=== PATIENT | male | born 1950 | race Caucasian/White ===

== ENCOUNTER 2017-04-04 10:22 | Outpatient (RCR) | payer MEDICARE, OTHER ==
--- NOTE | 2017-03-25 12:34 | Diagnostic Imaging Report ---
EXAMINATION: Supine view of the abdomen. INDICATION: Stones. FINDINGS: There are multiple calcifications in the flank region seen bilaterally up to 7 mm on both sides likely related to kidney stones. There is a 7 mm calcification projecting over the left margin of the sacrum near the course of the left ureter. It is uncertain if this is in or outside the left ureter. There is evidence of prior hernia repair with radiopaque markers along the mesh in the periumbilical region. IMPRESSION: 1. Bilateral kidney stones up to 6 mm suggested. 2. Indeterminate 7 mm calcification along the lateral margin of the left lower sacrum. If there is clinical suspicion of a left ureteric stone, then further evaluation with CT would be helpful in localizing this calcification. Dictated by: Dictated on workstation # [id number]
[2017-03-25 13:29] LABS: CREATININE SERUM 1.28 MG/DL (0.60-1.30); PHOSPHORUS 2.8 MG/DL (2.3-4.7); POTASSIUM 3.4 MMOL/L (3.6-5.0)
[2017-03-25 13:45] LABS: CALCIUM 13.4 MG/DL (8.5-10.1)
[2017-04-07] MEDS ORDERED: HYDR25TA4 PO (14:32)
[2017-04-07] MEDS ORDERED: ASCO-262 PO (14:32)
[2017-04-07] MEDS ORDERED: GABA-488 PO (14:32)
[2017-04-07] MEDS ORDERED: LISI10TA2 PO (14:32)
[2017-04-07] MEDS ORDERED: DOCU100T7 PO (14:32)
[2017-04-07] MEDS ORDERED: ALLO100T PO (14:32)
[2017-04-07] MEDS ORDERED: POTA10TA17 PO (14:32)
[2017-04-07] MEDS ORDERED: BUME1TAB4 PO (14:32)
[2017-04-07] MEDS ORDERED: METF1000 PO (14:32)
[2017-04-07] MEDS ORDERED: VITA1TAB17 PO (14:32)
[2017-04-07] MEDS ORDERED: GLIM2TAB PO (14:32)
[2017-04-07] MEDS ORDERED: CETI10TA17 PO (14:32)
[2017-04-07] MEDS ORDERED: POTA15TA PO (14:32)
[2017-04-07 22:38] LABS: STONE RISK AMMONIUM 18 mEq/24hr (14-62); STONE RISK BRUSHITE 4.21 (< 2.00); STONE RISK CALCIUM 457 mg/day (< 250); STONE RISK CITRATE 840 mg/day (> 320); STONE RISK CREATININE 2060 mg/day (800-2000); STONE RISK MAGNESIUM 133 mg/day (> 60); STONE RISK OXALATE 90 mg/day (< 45); STONE RISK PH 6.5 (5.5-7.0); STONE RISK PHOSPHOROUS 1509 mg/day (< 1100); STONE RISK POTASSIUM 112 mEq/24hr (19-135); STONE RISK SODIUM 198 mEq/24hr (< 200); STONE RISK SODIUM URATES 1.07 (< 2.00); STONE RISK STRUVITE 0.93 (< 75.00); STONE RISK SULFITE 33 mmol/day (< 30); STONE RISK TOTAL VOLUME 2.68 L/day (> 2.00); STONE RISK URIC ACID 482 mg/day (< 700); STONE RISK URIC ACID SAT 0.27 (< 2.00)
[2017-04-12] MEDS ORDERED: HYDR-3875 PO (10:23)
[2017-04-12] MEDS ORDERED: TAMS0.4C98 PO (10:23)
[2017-04-12] MEDS ORDERED: CIPR-225 PO (10:23)
[2017-04-27] MEDS ORDERED: TAMS0.4C98 PO (09:53)
[2017-04-27] MEDS ORDERED: NITR-65 PO (09:53)
[2017-04-27] MEDS ORDERED: HYDR-3875 PO (09:53)
[2017-06-07] MEDS ORDERED: HYDR-3874 PO (09:30)
[2017-06-07] MEDS ORDERED: NITR-68 PO (09:30)
[2017-06-07] MEDS ORDERED: TAMS0.4C98 PO (09:30)
== END 2017-06-11 | disposition home or self-care (01) ==
LOC: LAB 10:22
PROVIDERS: ATTEND Urology
DX: N20.0 Calculus of kidney (principal)
CPT/HCPCS: 36415; 74000; 80048; 82140; 82340; 82507; 82570; 83735; 83945; 83986; 84100; 84105; 84133; 84300; 84392; 84550; 84560

== ENCOUNTER → 2017-04-04 | Outpatient (CLI) | payer MEDICARE, OTHER ==
[~2017-04-04] MED LIST: ALLP300T PO; ASCO-262 PO; ASP81TEC PO; CALC-80 PO; CHOL200035 PO; CYAN10007 PO; FISH1CAP15 PO; HYDR-34 PO; HYDR-3583 PO; IBP800T PO; LISI1TAB6 PO; LISINOPRIL-HCTZ PO; LVT.1T PO; MELO-195 PO; MULT-608 PO; OMG1KC PO; POTASSIUM CITRATE PO; SITA1TAB6 PO; VITA1CAP59 PO; [UNRECOGNIZED DRUG - OTHER] PO
--- NOTE | 2017-04-04 16:25 | Diagnostic Imaging Report ---
PROCEDURE: CT urinary tract, rule out kidney stone. TECHNIQUE: Multiple contiguous axial images were obtained through the abdomen and pelvis without the use of intravenous contrast. INDICATION: Renal stones. FINDINGS: The lung bases demonstrate multiple nodules up to 1.2 cm in the left lower lobe and numerous tiny nodules in the right lower lobe with a dominant nodule measuring 9 mm. The etiology is uncertain. The liver is hypodense, compatible with fatty infiltration. The spleen is mildly enlarged at 16 cm in length. The gallbladder, pancreas, and adrenal glands appear unremarkable. There are peripancreatic lymph nodes measuring up to 1.2 cm in size. There are multiple nonobstructive kidney stones bilaterally, up to 1 cm in the lower pole of the left kidney and up to 5 mm in the lower pole of the right kidney. There is mild left hydroureteronephrosis secondary to obstructive stones in the left ureterovesical junction measuring 8 mm. There are multiple other smaller stones more upstream within the distal 3 cm of the left ureter. There is no bladder stone. The urinary bladder wall anteriorly is minimally thickened. The prostate is mildly enlarged at 5.9 cm in transverse dimension. There is no bowel obstruction. There is a normal appendix seen. There is suggestion of previous hernia repair with mesh around the umbilicus region and in the subxiphoid region as well. The abdominal aorta is normal in caliber. No periaortic significantly enlarged lymph node. The osseous structures demonstrate a compression fracture of the L1 vertebral body, age indeterminate. IMPRESSION: 1. There is mild to moderate left hydroureteronephrosis secondary to obstructive stones up to 8 mm in the left UVJ. Multiple smaller fragments are seen as well within the distal 3 cm of the left ureter. 2. In addition, there are multiple bilateral nonobstructive kidney stones. 3. Mild splenomegaly. 4. Hepatic steatosis. 5. Numerous bilateral lower lobe pulmonary nodules. The etiology is indeterminate. Correlate clinically. A CT scan of the chest with contrast is also recommended. Atypical or mycobacterial infection is included in the differenial. Dr. Rogers was called and a voice message was left about the findings in the left kidney and in the lungs including the concern for underlying atypical or potentially mycobacterial infection. Report faxed to Dr. Rogers and office alerted at 4:25 p.m. 04/04/2017/cb Dictated by: Dictated on workstation # [id number]
== END ==
LOC: RAD 13:16
PROVIDERS: ATTEND Urology
DX: N13.2 Hydronephrosis with renal and ureteral calculous obstruction (principal); K76.0 Fatty (change of) liver, not elsewhere classified; R91.8 Other nonspecific abnormal finding of lung field
CPT/HCPCS: 74176

== ENCOUNTER 2017-04-07 14:08 | Outpatient (CLI) | payer MEDICARE, OTHER ==
[~2017-04-07] VITALS: Ht 185.4 cm; Wt 125.2 kg
[~2017-04-07 14:08] MED LIST changes: -ALLO100T PO; -BUME1TAB4 PO; -CATHETER FLUSH 10 ML SYR IV PRN; -CETI10TA17 PO; -DOCU100T7 PO; -GABA-488 PO; -GLIM2TAB PO; -HYDR25TA4 PO; -IOHEXOL 350 MG/ML 100 ML (OMNIPAQUE 350) VIAL IV ONE; -LISI10TA2 PO; -METF1000 PO; -NS 100 ML (IVPB) BAG IV ONE; -POTA10TA17 PO; -POTA15TA PO; -VITA1TAB17 PO
[2017-04-07 14:17] VITALS: BP 122/71
[2017-04-07] MEDS ORDERED: METF1000 PO (14:32)
[2017-04-07] MEDS ORDERED: POTA15TA PO (14:32)
[2017-04-07] MEDS ORDERED: GABA-488 PO (14:32)
[2017-04-07] MEDS ORDERED: POTA10TA17 PO (14:32)
[2017-04-07] MEDS ORDERED: VITA1TAB17 PO (14:32)
[2017-04-07] MEDS ORDERED: BUME1TAB4 PO (14:32)
[2017-04-07] MEDS ORDERED: GLIM2TAB PO (14:32)
[2017-04-07] MEDS ORDERED: DOCU100T7 PO (14:32)
[2017-04-07] MEDS ORDERED: CETI10TA17 PO (14:32)
[2017-04-07] MEDS ORDERED: ALLO100T PO (14:32)
[2017-04-07] MEDS ORDERED: ASCO-262 PO (14:32)
[2017-04-07] MEDS ORDERED: LISI10TA2 PO (14:32)
[2017-04-07] MEDS ORDERED: HYDR25TA4 PO (14:32)
== END 2017-04-07 14:45 | disposition home or self-care (01) ==
LOC: PREOP 14:08
PROVIDERS: ATTEND Urology
DX: Z01.818 Encounter for other preprocedural examination (principal); Z11.2 Encounter for screening for other bacterial diseases; N20.0 Calculus of kidney; N20.1 Calculus of ureter
CPT/HCPCS: 87081

== ENCOUNTER → 2017-04-07 | Outpatient (CLI) | payer MEDICARE, OTHER ==
[~2017-04-07] MED LIST changes: +ALLO100T PO; +BUME1TAB4 PO; +CATHETER FLUSH 10 ML SYR IV PRN; +CETI10TA17 PO; +DOCU100T7 PO; +GABA-488 PO; +GLIM2TAB PO; +HYDR25TA4 PO; +IOHEXOL 350 MG/ML 100 ML (OMNIPAQUE 350) VIAL IV ONE; +LISI10TA2 PO; +METF1000 PO; +NS 100 ML (IVPB) BAG IV ONE; +POTA10TA17 PO; +POTA15TA PO; +VITA1TAB17 PO
--- NOTE | 2017-04-07 10:13 | Diagnostic Imaging Report ---
EXAM: KUB. INDICATION: Left ureteric stones. COMPARISON: 03/25/17. FINDINGS: There are distal left ureteric stones again seen measuring up to 6 mm in size. Multiple stones within the distal 3 cm of the left ureter are noted. The kidneys demonstrate bilateral flank stones measuring up to 7 mm in the lower aspect of the left kidney and up to 5 mm in the lower aspect of the right kidney. There is note of radiopaque markers from ventral hernia repair mesh seen. IMPRESSION: Multiple bilateral kidney stones and multiple distal left ureteric stones. Dictated by: Dictated on workstation # [id number]
--- NOTE | 2017-04-07 10:16 | Diagnostic Imaging Report ---
PROCEDURE: CT chest with contrast only. TECHNIQUE: Multiple contiguous axial images were obtained through the chest after administration of intravenous contrast. INDICATION: Nodules seen in the lung bases on recent CT abdomen. 75 mL of Omnipaque 350 is administered intravenously. FINDINGS: There are numerous bilateral pulmonary micronodules in a perilymphatic distribution predominantly involving the midlung zone and is bilateral but more prominent on the right side. The largest nodule is in the minor fissure measuring 1.2 cm with the vast majority of the nodules being less than 4.0 mm in size. There is no significant consolidation. There is no cavitary lesion or abscess. There are a few nodules demonstrating slight surrounding groundglass opacity. There is no dominant mass. No pleural effusion. No pericardial effusion. There is mild lymphadenopathy in the right hilum up to 1.4 cm in size. Borderline-sized left hilar and right paratracheal lymph nodes are seen. The thoracic aorta is normal in caliber. Spleen is moderately enlarged at 16.2 cm in length and appears heterogeneous with underlying lesions suggested. Some of the heterogeneity could be related to the early arterial phase normal perfusion pattern. However, the appearance is concerning for underlying splenic nodules of variable sizes from 0.5 to 2.0 cm. There is also suggestion of slight heterogeneity in the liver and a nonspecific hypodense nodule measuring 1.6 cm in the right hepatic lobe. These are not well seen due to the contrast phase dedicated to the chest and too early for abdominal optimal evaluation. IMPRESSION: Perilymphatic distribution mostly in the midlung zone, more on the right side with associated mild lymphadenopathy mostly in the right hilum. There is also splenomegaly with underlying numerous lesions and suggestion of liver lesions as well. The findings are concerning for sarcoidosis or other granulomatous process. Fungal or other atypical infection including TB is also in the differential diagnosis. The findings were discussed with Dr. Rogers by Dr. Marinelli at time of dictation. Dictated by: Dictated on workstation # [id number]
== END ==
LOC: RAD 09:23
PROVIDERS: ATTEND Urology
DX: N20.1 Calculus of ureter (principal); R91.8 Other nonspecific abnormal finding of lung field; R16.1 Splenomegaly, not elsewhere classified
CPT/HCPCS: 71260; 74000

== ENCOUNTER 2017-04-12 06:59 | Day surgery (SDC) | payer MEDICARE, OTHER ==
[~2017-04-12] VITALS: Ht 185.4 cm; Wt 125.2 kg
[~2017-04-12 06:59] MED LIST changes: +ALLO100T PO; +BUME1TAB4 PO; +CETI10TA17 PO; +DOCU100T7 PO; +GABA-488 PO; +GLIM2TAB PO; +HYDR25TA4 PO; +LISI10TA2 PO; +METF1000 PO; +POTA10TA17 PO; +POTA15TA PO; +VITA1TAB17 PO
[2017-04-12 07:30] VITALS: BP 124/83
[2017-04-12] MEDS ORDERED: CATHETER FLUSH 10 ML SYR IV PRN (07:45)
[2017-04-12] MEDS ORDERED: cefTRIAXone 1 GM/NS 50 ML IVPB IV ONE ×2 (07:45)
[2017-04-12] MEDS ORDERED: proPOfol 200 MG/20 ML (DIPRIVAN) VIAL IV ONE (08:04)
[2017-04-12] MEDS ORDERED: LIDOCAINE PF 2% 5 ML (XYLOCAINE) VIAL ONE (08:04)
[2017-04-12] MEDS ORDERED: MIDAZOLAM 2 MG/2 ML (VERSED) VIAL ONE (08:06)
[2017-04-12] MEDS ORDERED: fentaNYL INJECTION 100 MCG/2 ML AMP ONE (08:08)
[2017-04-12] MEDS ORDERED: ONDANSETRON 4 MG/2 ML (SDV) Z0FRAN ONE (08:09)
[2017-04-12] MEDS ORDERED: LACTATED RINGERS 1,000 ML IV ONE (08:09)
[2017-04-12] MEDS ORDERED: SEVOFLURANE (ULTANE) 15 ML INHAL SOLN ONE ×3 (08:09→09:01)
--- NOTE | 2017-04-12 08:19 | Diagnostic Imaging Report ---
Supine view of the abdomen. INDICATION: Stones. FINDINGS: There are bilateral kidney stones seen up to 6 mm in the lower pole of the left kidney and 4 mm in the lower pole of the right kidney. There is also distal left ureteric stone up to 8 mm in size. There is a mesh repair markers seen in the mid abdomen. IMPRESSION: Multiple bilateral renal and distal left ureteric stones. Dictated by: Dictated on workstation # [id number]
[2017-04-12] MEDS ORDERED: LACTATED RINGERS 1,000 ML IV PRN (08:20)
--- NOTE | 2017-04-12 08:24 | Progress Note-Pre Operative ---
Pre-Operative Progress Note H&P Reviewed The H&P was reviewed, patient examined and no changes noted. Date Seen by Provider: Apr 12, 2017 Time Seen by Provider: 08:23 Date H&P Reviewed: Apr 12, 2017 Time H&P Reviewed: 08:23 Pre-Operative Diagnosis: LT DISTAL AND BILATERAL RENAL STONES CATRACHITO HERNANDEZ MD Apr 12, 2017 8:24 am
--- NOTE | 2017-04-12 09:14 | Progress Note-Post Operative ---
Post-Operative Progess Note Surgeon (s)/Stunt Man (s) Surgeon CATRACHITO HERNANDEZ MD Stunt Man: N/A Pre-Operative Diagnosis LT DISTAL AND BILATERAL RENAL STONES Post-Operative Diagnosis SAME, AND URETHRAL STONE, AND BLADDER STONES Procedure & Operative Findings Date of Procedure 04/12/17 Procedure Performed/Findings CYSTOSCOPY WITH EXTRACTION OF URETHRAL AND BLADDER STONES, LT URETEROSCOPY WITH STONE LITHOTRIPSY Anesthesia Type GENERAL Estimated Blood Loss Estimated blood loss (mL): N/A Specimens/Packing Specimens Removed STONES Packing: N/A CATRACHITO HERNANDEZ MD Apr 12, 2017 9:14 am
--- NOTE | 2017-04-12 09:17 | Discharge Inst-Urology ---
Discharge Inst-Urology Discharge Medications New, Converted, or Re-newed RX: RX on Chart Patient Instructions/Follow Up Plan Please make appointment to been seen in office Tuesday or Wednesday 04/25 or prior to it Resume ASA and hold again Friday 04/[address] today Increase oral fluids for 48 hours and then as needed. Diet and Activity as tolerated. If questions or concerns contact your physician Or seek help at emergency department. CATRACHITO HERNANDEZ MD Apr 12, 2017 9:17 am
[2017-04-12 10:00] VITALS: BP 131/86
[2017-04-12] MEDS ORDERED: TAMS0.4C98 PO (10:23)
[2017-04-12] MEDS ORDERED: CIPR-225 PO (10:23)
[2017-04-12] MEDS ORDERED: HYDR-3875 PO (10:23)
[2017-04-12 10:30] VITALS: BP 131/79
[2017-04-12 11:00] VITALS: BP 128/74
[2017-04-12 11:10] VITALS: BP 128/74
--- NOTE | 2017-04-12 11:38 | Diagnostic Imaging Report ---
Supine view of the abdomen. INDICATION: Left renal stones. FINDINGS: Again seen bilateral flank calcifications compatible with renal stones. They measure up to 7 mm in the lower right kidney and 6 mm in the lower left kidney. There is also a calcification in the left side of the pelvis probably within the left ureter distally that appears less prominent compared to the prior study performed on the same day. This might be related to interval lithotripsy. IMPRESSION: Bilateral renal stones and less prominent distal left ureteric stone probably secondary to interval lithotripsy. Dictated by: Dictated on workstation # [id number]
--- NOTE | 2017-04-12 17:08 | OPERATIVE REPORT ---
PROCEDURE PHYSICIAN: CATRACHITO HERNANDEZ DATE OF PROCEDURE: 04/12/2017 PREOPERATIVE DIAGNOSES: 1. Left distal ureteral stone. 2. Bilateral renal stones. PREOPERATIVE DIAGNOSES: 1. Left distal ureteral stone. 2. Bilateral renal stones. 3. Urethral stone. 4. Bladder stones. OPERATION PERFORMED: 1. Cystoscopy. 2. Extraction of urethral stone. 3. Extraction of bladder stones. 4. Left ureteroscopy with stone lithotripsy. SURGEON: Ken. ANESTHESIA: General. COMPLICATIONS: None. PROCEDURE: Under satisfactory general anesthesia, the patient in lithotomy position, the genitalia were prepped and draped in usual sterile fashion. Cystoscope was introduced under vision. A good size stone was visualized the prostatic fossa. I was able to grasp it and remove it with grasping forceps. Went back with cystoscope and there were some stones in the bladder that were irrigated out. Then attention was directed to the left ureteral orifice, intramural portion. It was dilated to accommodate a 6.9-Sinhala semirigid ureteroscope. I went up to the stone, visualized it in the distal ureter and broke it up completely with lithoclast. Fragments flowed down into the bladder. I went beyond the stone. There was no further stone proximally. The ureteroscope was removed. I elected not to do any further procedure on the kidney, not to bring further fragments from them and I will do a left ESWL in 2 weeks and then look into possible right ESWL 2 weeks later. The plan was fully explained to the patient prior to surgery and his and again to his after surgery. The patient tolerated the procedure and anesthesia well and was sent to recovery room in stable condition. Job ID: [id number] Dictated Date: 04/12/2017 09:12:43 Marshmallow Machine Operator Date: 04/12/2017 17:02:23 / edwin
== END 2017-04-12 11:10 | disposition home or self-care (01) ==
LOC: SDC 06:59
PROVIDERS: ATTEND Urology
DX: N20.2 Calculus of kidney with calculus of ureter (principal); E11.9 Type 2 diabetes mellitus without complications; E03.9 Hypothyroidism, unspecified; I10 Essential (primary) hypertension; G47.33 Obstructive sleep apnea (adult) (pediatric); E66.9 Obesity, unspecified; Z68.36 Body mass index [BMI] 36.0-36.9, adult; Z79.84 Long term (current) use of oral hypoglycemic drugs; Z79.899 Other long term (current) drug therapy
CPT/HCPCS: 74000; 82962

== ENCOUNTER → 2017-04-21 | Outpatient (CLI) | payer MEDICARE, OTHER ==
[~2017-04-21] MED LIST changes: +CIPR-225 PO; +HYDR-3874 PO; +HYDR-3875 PO; +NITR-65 PO; +NITR-68 PO; +TAMS0.4C98 PO
[2017-04-21 11:34] LABS: BASOPHILS % (AUTO) 0 % (0-10); EOSINOPHILS # (AUTO) 0.3 10^3/uL (0.0-0.3); EOSINOPHILS % (AUTO) 4 % (0-10); LYMPHOCYTES # (AUTO) 2.6 X 10^3 (1.0-4.0); LYMPHOCYTES % (AUTO) 37 % (12-44); MEAN CORPUSCULAR HEMOGLOBIN 28 PG (25-34); MEAN CORPUSCULAR HGB CONC 32 G/DL (32-36); MEAN CORPUSCULAR VOLUME 86 FL (80-99); MEAN PLATELET VOLUME 11.2 FL (7.4-10.4); MONOCYTES % (AUTO) 14 % (0-12); NEUTROPHILS # (AUTO) 3.2 X 10^3 (1.8-7.8); NEUTROPHILS % (AUTO) 45 % (42-75); PLATELET COUNT 200 10^3/uL (130-400); RED BLOOD COUNT 4.64 10^6/uL (4.35-5.85); RED CELL DISTRIBUTION WIDTH 15.7 % (10.0-14.5)
[2017-04-21 11:52] LABS: ALBUMIN 4.2 GM/DL (3.2-4.5); BILIRUBIN,TOTAL 0.9 MG/DL (0.1-1.0); CREATININE SERUM 1.22 MG/DL (0.60-1.30); POTASSIUM 3.5 MMOL/L (3.6-5.0); TOTAL PROTEIN 7.6 GM/DL (6.4-8.2); hs C REACTIVE PROTEIN 0.59 MG/DL (0.00-0.50)
[2017-04-21 12:07] LABS: BAND NEUTROPHILS 0 %; NEUTROPHILS % (MANUAL) 55 %
[2017-04-21 12:08] LABS: BASOPHILS % (MANUAL) 0 %; EOSINOPHILS % (MANUAL) 2 %; LYMPHOCYTES % (MANUAL) 37 %
[2017-04-21 15:38] LABS: CALCIUM 13.9 MG/DL (8.5-10.1)
== END ==
LOC: LAB 11:01
PROVIDERS: ATTEND Nurse Practitioner Family
DX: R91.8 Other nonspecific abnormal finding of lung field (principal)
CPT/HCPCS: 36415; 80053; 82164; 85007; 85027; 86141

== ENCOUNTER → 2017-04-26 | Outpatient (CLI) | payer MEDICARE, OTHER ==
[2017-04-26 15:36] LABS: PEP REPORT SEE PATH REPORT
[2017-04-26 16:16] LABS: THYROID STIMULATING HORMONE 0.9 UIU/ML (0.35-4.94)
[2017-04-26 16:33] LABS: BILIRUBIN,TOTAL 0.5 MG/DL (0.1-1.0); CREATININE SERUM 1.31 MG/DL (0.60-1.30); POTASSIUM 3.6 MMOL/L (3.6-5.0); TOTAL PROTEIN 7.3 GM/DL (6.4-8.2)
[2017-04-26 16:35] LABS: CALCIUM 13.1 MG/DL (8.5-10.1)
[2017-04-27 07:42] LABS: VITAMIN D 25-HYDROXY (TOTAL) 41 ng/mL (30-100)
[2017-04-27 07:46] LABS: PTH INTACT IRMA <6.0 pg/mL (10.0-65.0)
[2017-04-27 08:53] LABS: CALCIUM IONIZED 1.77 mmol/L (1.16-1.32); CALCIUM PARA THYROID HORMONE 12.9 mg/dL (8.5-10.5); CALCIUM PH 7.41; CORRECTED IONIZED CALCIUM 1.78 mmol/L (1.16-1.32)
[2017-04-28 15:54] LABS: SERUM PROTEIN ELEC DETAIL L-17-0010735
[2017-04-28 15:55] LABS: CLIN PATHOLOGY REPORT FOOTNOTE
== END ==
LOC: LAB 13:52
PROVIDERS: ATTEND Nurse Practitioner Family
DX: R91.8 Other nonspecific abnormal finding of lung field (principal)
CPT/HCPCS: 36415; 80053; 82306; 82330; 83970; 84155; 84165; 84166; 84443

== ENCOUNTER → 2017-04-26 | Outpatient (CLI) | payer MEDICARE, OTHER ==
--- NOTE | 2017-04-26 14:15 | Diagnostic Imaging Report ---
EXAMINATION: Supine abdomen at 2:00 p.m. INDICATION: Left ureteral stone. FINDINGS: The previous exam of 04/12/2017 noted calculi overlying both kidneys. Those calcifications are again evident and do not seem to have changed significantly. The prior study also suggested that there was a calculus in the distal left ureter. That finding is difficult to appreciate with certainty on this exam. Whether this calculus has passed or whether still present is not certain. If further imaging is desired, then CT the abdomen pelvis would be recommended. No new abnormality has developed otherwise. IMPRESSION: 1. There are still nonobstructive calculi overlying both kidneys, but the suspected calculus in the distal left ureter seen previously is not as conspicuous as on the prior exam. Recommendations as above. 2. No new abnormality has developed otherwise. Dictated by: Dictated on workstation # [id number]
== END ==
LOC: RAD 13:33
PROVIDERS: ATTEND Urology
DX: N20.0 Calculus of kidney (principal)
CPT/HCPCS: 74000

== ENCOUNTER → 2017-04-26 | Outpatient (CLI) | payer MEDICARE, OTHER | LOC: PREOP 04-20 05:32 | PROVIDERS: ATTEND Urology | DX: Z01.818 Encounter for other preprocedural examination (principal); N20.2 Calculus of kidney with calculus of ureter ==

== ENCOUNTER 2017-04-27 06:25 | Day surgery (SDC) | payer MEDICARE, OTHER ==
[~2017-04-27] VITALS: Ht 185.4 cm; Wt 125.2 kg
[~2017-04-27 06:25] MED LIST changes: -HYDR-3874 PO; -NITR-65 PO; -NITR-68 PO
[2017-04-27] MEDS ORDERED: NS (IVPB) 50 ML ONE (06:52)
--- NOTE | 2017-04-27 07:02 | Progress Note-Pre Operative ---
Pre-Operative Progress Note H&P Reviewed The H&P was reviewed, patient examined and no changes noted. Date Seen by Provider: Apr 27, 2017 Time Seen by Provider: 07:02 Date H&P Reviewed: Apr 27, 2017 Time H&P Reviewed: 07:02 Pre-Operative Diagnosis: LT RENAL STONE CATRACHITO HERNANDEZ MD Apr 27, 2017 7:02 am
[2017-04-27 07:07] VITALS: BP 131/88
[2017-04-27] MEDS ORDERED: LACTATED RINGERS 1,000 ML IV PRN (07:14)
[2017-04-27] MEDS ORDERED: CATHETER FLUSH 10 ML SYR IV PRN (07:30)
--- NOTE | 2017-04-27 07:45 | Diagnostic Imaging Report ---
INDICATION: Preop ESWL. COMPARISON: 04/26 FINDINGS: Multiple stones project over the upper, middle and lower one third of the left kidney. The largest projects inferiorly at 5.8 mm. Several tiny punctate radiopacities project over the right renal shadow most notably at its lower pole. The largest of which measures roughly 2 mm. No definite radiopaque pelvic calculi are identified. Radiopacity on the right projecting inferior to the tip of the fourth lumbar transverse process measuring 3.6 mm maybe ureteral stone or bowel content. IMPRESSION: Bilateral kidney stones. Questionable mid third right ureteral stone. No visualized pelvic calculus. Dictated by: Dictated on workstation # [id number]
[2017-04-27] MEDS ORDERED: LACTATED RINGERS 1,000 ML IV ONE (07:52)
[2017-04-27] MEDS ORDERED: ONDANSETRON 4 MG/2 ML (SDV) Z0FRAN ONE (07:52)
[2017-04-27] MEDS ORDERED: proPOfol 200 MG/20 ML (DIPRIVAN) VIAL IV ONE (07:52)
[2017-04-27] MEDS ORDERED: LIDOCAINE PF 2% 5 ML (XYLOCAINE) VIAL ONE (07:52)
[2017-04-27] MEDS ORDERED: MIDAZOLAM 2 MG/2 ML (VERSED) VIAL ONE (07:53)
[2017-04-27] MEDS: cefTRIAXone 1 GM/NS 50 ML IVPB IV ONE ×4 (07:53→08:22)
[2017-04-27] MEDS: cefTRIAXone 1 GM (ROCEPHIN) VIAL ONE ×2 (07:53→08:30)
[2017-04-27] MEDS ORDERED: fentaNYL INJECTION 100 MCG/2 ML AMP ONE (07:54)
--- NOTE | 2017-04-27 08:20 | Discharge Inst-Urology ---
Discharge Inst-Urology Discharge Medications New, Converted, or Re-newed RX: RX on Chart Patient Instructions/Follow Up Plan Please make appointment to been seen in office in 2 weeks. KUB prior to it KUB on way home Post ESWL instructions Increase oral fluids for 48 hours and then as needed. Diet and Activity as tolerated. If questions or concerns contact your physician Or seek help at emergency department. CATRACHITO HERNANDEZ MD Apr 27, 2017 8:20 am
--- NOTE | 2017-04-27 08:21 | Progress Note-Post Operative ---
Post-Operative Progess Note Surgeon (s)/Java Technical Manager (s) Surgeon CATRACHITO HERNANDEZ MD Java Technical Manager: N/A Pre-Operative Diagnosis LT RENAL STONE Post-Operative Diagnosis SAME Procedure & Operative Findings Date of Procedure 04/27/17 Procedure Performed/Findings LT ESWL Anesthesia Type GENERAL Estimated Blood Loss Estimated blood loss (mL): N/A Specimens/Packing Specimens Removed N/A Packing: N/A CATRACHITO HERNANDEZ MD Apr 27, 2017 8:21 am
[2017-04-27] MEDS ORDERED: SEVOFLURANE (ULTANE) 15 ML INHAL SOLN ONE (08:30)
[2017-04-27] MEDS ORDERED: FUROSEMIDE 40 MG/4 ML INJ (LASIX) ONE (08:44)
[2017-04-27] MEDS ORDERED: ONDANSETRON 4 MG/2 ML (SDV) Z0FRAN IVP PRN (08:45)
[2017-04-27] MEDS ORDERED: fentaNYL INJECTION 100 MCG/2 ML AMP IVP PRN (08:45)
[2017-04-27] MEDS ORDERED: KETOROLAC 30 MG/ML VIAL IVP ONE (08:45)
[2017-04-27 09:20] VITALS: BP 114/75
--- NOTE | 2017-04-27 09:23 | OPERATIVE REPORT ---
DATE OF SERVICE: 04/27/2017 PREOPERATIVE DIAGNOSIS: Bilateral ureteral stone. POSTOPERATIVE DIAGNOSIS: Bilateral ureteral stone. OPERATION PERFORMED: Left extracorporeal shock wave lithotripsy. SURGEON: Siva Hernandez MD ANESTHESIA: General. COMPLICATIONS: None. PROCEDURE: Under satisfactory general anesthesia, the patient was in supine position on the ESWL table, the left renal stone was localized, shocks were delivered at kV of 5. After 2000 shocks, the stone was fragmented completely and there were good results. The patient received 40 mg of Lasix and 30 mg of Toradol IV at the end of the procedure. He tolerated the procedure and anesthesia well and was sent to recovery room in stable condition. Job ID: [id number] DocumentID: [id number] Dictated Date: 04/27/2017 08:29:46 Visualization Developer Date: 04/27/2017 09:22:24 Dictated By: SIVA HERNANDEZ MD
[2017-04-27 09:50] VITALS: BP 129/79
[2017-04-27] MEDS ORDERED: NITR-65 PO (09:53)
[2017-04-27] MEDS ORDERED: TAMS0.4C98 PO (09:53)
[2017-04-27] MEDS ORDERED: HYDR-3875 PO (09:53)
[2017-04-27 10:20] VITALS: BP 126/72
--- NOTE | 2017-04-27 11:35 | Diagnostic Imaging Report ---
Supine abdomen at 10:16 AM. INDICATION: Post ESWL. In the interval since the prior exam performed earlier today, the patient has undergone ESWL. The 5.7-mm calcification overlying the inferior pole of the left kidney seen on the prior study now appears to be partially fragmented. The other calcific densities overlying the kidneys are essentially no different. There is no sign of a calculus on the expected paths of the ureters. IMPRESSION: The calcification overlying the inferior pole of the left kidney appears to have been fragmented. The overall appearance of the abdomen is otherwise stable. A followup exam would be recommended for continued evaluation. Dictated by: Dictated on workstation # [id number]
== END 2017-04-27 10:20 | disposition home or self-care (01) ==
LOC: SDC 06:25
PROVIDERS: ATTEND Urology
DX: N20.1 Calculus of ureter (principal); I10 Essential (primary) hypertension; G47.33 Obstructive sleep apnea (adult) (pediatric); E11.9 Type 2 diabetes mellitus without complications; Z79.899 Other long term (current) drug therapy
CPT/HCPCS: 74000; 82962; 87081

== ENCOUNTER → 2017-05-06 | Outpatient (CLI) | payer MEDICARE, OTHER ==
[~2017-05-06] MED LIST changes: +HYDR-3874 PO; +NITR-65 PO; +NITR-68 PO
== END ==
LOC: PREOP 05:38
PROVIDERS: ATTEND Urology
DX: Z01.818 Encounter for other preprocedural examination (principal); N20.0 Calculus of kidney

== ENCOUNTER → 2017-05-09 | Outpatient (CLI) | payer MEDICARE, OTHER ==
[~2017-05-09] MED LIST changes: -HYDR-3874 PO; -NITR-68 PO
--- NOTE | 2017-05-09 14:31 | Diagnostic Imaging Report ---
INDICATION: History of nephrolithiasis. COMPARISON: CT dated 04/04/2017 and radiograph dated 04/27/2017. FINDINGS: Two supine radiographic views of the abdomen were obtained. Small extraosseous calcifications are seen projecting over the bilateral renal shadows consistent with nephrolithiasis. No calculi are seen along the expected course of either ureter, nor within the pelvis. No unexpected radiopaque foreign bodies are identified. Small bowel loops are nondistended. There is no large collection of free intraperitoneal air. Bony structures show no acute abnormalities. IMPRESSION: 1. Bilateral nephrolithiasis. 2. No evidence of ureteral calculus. Dictated by: Dictated on workstation # [id number]
== END ==
LOC: RAD 13:43
PROVIDERS: ATTEND Urology
DX: N20.0 Calculus of kidney (principal)
CPT/HCPCS: 74000

== ENCOUNTER → 2017-05-10 | Outpatient (CLI) | payer MEDICARE, OTHER ==
[2017-05-10 11:04] LABS: INR 0.9 (0.8-1.4); PROTHROMBIN TIME PATIENT 11.8 SEC (12.2-14.7)
[2017-05-10 11:12] LABS: ALBUMIN 4.2 GM/DL (3.2-4.5); BILIRUBIN,TOTAL 0.6 MG/DL (0.1-1.0); CREATININE SERUM 1.23 MG/DL (0.60-1.30); POTASSIUM 3.7 MMOL/L (3.6-5.0); TOTAL PROTEIN 7.6 GM/DL (6.4-8.2)
[2017-05-11 05:35] LABS: CALCIUM IONIZED 1.55 mmol/L (1.16-1.32); CORRECTED IONIZED CALCIUM 1.51 mmol/L (1.16-1.32)
[2017-05-11 06:58] LABS: CALCIUM PH 7.36
== END ==
LOC: LAB 10:27
PROVIDERS: ATTEND Nurse Practitioner Family
DX: D86.9 Sarcoidosis, unspecified (principal); R59.9 Enlarged lymph nodes, unspecified
CPT/HCPCS: 36415; 80053; 82330; 85610

== ENCOUNTER 2017-05-13 05:34 | Outpatient (CLI) | payer MEDICARE, OTHER ==
[~2017-05-13] VITALS: Ht 185.4 cm; Wt 125.2 kg
== END 2017-05-13 12:48 ==
LOC: PREOP 05:34
PROVIDERS: ATTEND Internal Medicine Critical Care Medicine
DX: Z01.818 Encounter for other preprocedural examination (principal); R59.9 Enlarged lymph nodes, unspecified; R91.8 Other nonspecific abnormal finding of lung field; D86.9 Sarcoidosis, unspecified

== ENCOUNTER 2017-05-18 06:51 | Day surgery (SDC) | payer MEDICARE, OTHER ==
[~2017-05-18] VITALS: Ht 185.4 cm; Wt 125.2 kg
[2017-05-18] MEDS ORDERED: LIDOCAINE PF 1% 2 ML AMP INJ ONE (06:52)
[2017-05-18] MEDS ORDERED: LACTATED RINGERS 1,000 ML IV STA (06:57)
--- OUTSIDE RECORDS SUMMARY | 2017-05-18 07:00 | XMS REPORT | Continuity of Care Document ---
Author Author [employer] Organization [employer] Address Unknown Phone Unavailable Care Team Providers Care Aeronautical Test Engineer Name Role Phone [employer] Unavailable Unavailable Problems Medications Allergies, Adverse Reactions, Alerts Immunizations Results Vital Signs Encounters Procedures Plan of Care Social History Assessment and Plan Family History Value Date Source Advance Directives Order Name Results Value Date Source
[2017-05-18] MEDS ORDERED: SEVOFLURANE (ULTANE) 15 ML INHAL SOLN ONE ×3 (07:07→08:52)
[2017-05-18] MEDS ORDERED: PROPOFOL INJECTION 50 ML IV ONE (07:07)
[2017-05-18] MEDS ORDERED: fentaNYL INJECTION 100 MCG/2 ML AMP ONE (07:07)
[2017-05-18] MEDS ORDERED: ONDANSETRON 4 MG/2 ML (SDV) Z0FRAN ONE (07:08)
[2017-05-18] MEDS ORDERED: LIDOCAINE PF 2% 5 ML (XYLOCAINE) VIAL ONE (07:08)
[2017-05-18] MEDS ORDERED: ROCURONIUM 50 MG/5 ML (ZEMURON) VIAL IV ONE (07:08)
[2017-05-18] MEDS ORDERED: MIDAZOLAM 2 MG/2 ML (VERSED) VIAL ONE (07:08)
[2017-05-18] MEDS ORDERED: SUCCINYLCHOLINE INJ 100 MG/5 ML SYR ONE (07:09)
[2017-05-18 07:20] VITALS: BP 126/90
--- NOTE | 2017-05-18 07:42 | Progress Note-Pre Operative ---
Pre-Operative Progress Note H&P Reviewed The H&P was reviewed, patient examined and no changes noted. Date Seen by Provider: May 18, 2017 Time Seen by Provider: 07:41 Date H&P Reviewed: May 18, 2017 Time H&P Reviewed: 07:41 Pre-Operative Diagnosis: mediastinal lymphadenopathy TATA CHUNG DO May 18, 2017 07:42
[2017-05-18] MEDS ORDERED: PHENYLEPHRINE 100 MCG/ML 10 ML (ANESTHESIA) SYR ONE (08:05)
[2017-05-18] MEDS ORDERED: proPOfol 200 MG/20 ML (DIPRIVAN) VIAL IV ONE ×2 (08:10→08:42)
[2017-05-18] MEDS ORDERED: ONDANSETRON 4 MG/2 ML (SDV) Z0FRAN IVP PRN (09:15)
--- NOTE | 2017-05-18 09:33 | Pulmonary Procedures ---
Pulmonary Procedures Date of Procedure Date of Service: May 18, 2017 Bronch Bronchoscopy with fluoroscopy brushes, BAL, and washing EBUS was done- however no bx were taken Preop DX: mediastinal lymphadenopathy PostOP DX: same ( lymphnodes could not be bx via EBUS during procedure) Complications: None Pt was sedated per anesthesia. Bronchoscopy was advanced through the ED tube and an anatomical undertaken down to the segmental bronchi bilaterally. No endobronchial lesions noted. Fluoroscopy brushes, BAL, and washing were obtained from RLL. EBUS was then advanced through ET tube and the mediastinum was US. Lymph nodes could not be bx via EBUS secondary to size and location. Pt tolerated procedure well. No complications noted. TATA CHUNG DO May 18, 2017 09:33
[2017-05-18 09:40] VITALS: BP 122/83
[2017-05-18 10:10] VITALS: BP 122/76
--- NOTE | 2017-05-18 10:17 | Diagnostic Imaging Report ---
EXAMINATION: Portable supine AP chest at 0920 hours. INDICATION: Pulmonary nodules. FINDINGS: The previous CT chest exam performed on 04/07/2017 noted mild adenopathy involving the right hilum. There were also alveolar/interstitial infiltrates about the right hilum. Reportedly, the patient underwent a bronchoscopic procedure earlier today. On this exam, there is still increased density in the parenchyma about the right hilum. The density may be somewhat increased when compared to the prior exam. This finding may be secondary to pneumonia/atelectasis or less likely to hemorrhage. There is no sign of a pneumothorax on the right although a small pneumothorax could be present yet undetected on a supine film such as this. The left lung remains clear. The heart is stable. The mediastinum is not widened. The osseous structures are intact. IMPRESSION: 1. The appearance of the chest has worsened somewhat since the prior study as the density in the lung parenchyma about the right hilum has increased. This may be secondary to pneumonia/atelectasis and/or hemorrhage. 2. There is no sign of a pneumothorax although a small pneumothorax could be present yet undetected on a supine film such as this. Dictated by: Dictated on workstation # [id number]
[2017-05-18 10:33] VITALS: BP 122/76
--- NOTE | 2017-05-18 11:37 | Diagnostic Imaging Report ---
EXAMINATION: Fluoroscopic assistance. INDICATION: Bronchoscopy. TECHNIQUE: Fluoroscopic assistance was provided for Dr. John Garcia during his bronchoscopic procedure. 48 seconds of fluoroscopy time was utilized. FINDINGS: A single spot film of the right thorax was received. There is a bronchoscopic device in place. IMPRESSION: Fluoroscopic assistance was provided for Dr. Garcia during his bronchoscopy procedure. Dictated by: Dictated on workstation # [id number]
[2017-05-18] MEDS ORDERED: LACTATED RINGERS 1,000 ML IV PRN (11:57)
== END 2017-05-18 10:40 | disposition home or self-care (01) ==
LOC: ENDO 06:51
PROVIDERS: ATTEND Internal Medicine Critical Care Medicine
DX: R59.0 Localized enlarged lymph nodes (principal); G47.33 Obstructive sleep apnea (adult) (pediatric); R91.8 Other nonspecific abnormal finding of lung field; E83.52 Hypercalcemia; D86.9 Sarcoidosis, unspecified; I10 Essential (primary) hypertension; E11.9 Type 2 diabetes mellitus without complications; E03.9 Hypothyroidism, unspecified; Z79.899 Other long term (current) drug therapy
CPT/HCPCS: 71010; 87070; 87101; 87116; 87205

== ENCOUNTER 2017-06-07 05:56 | Day surgery (SDC) | payer MEDICARE, OTHER ==
[~2017-06-07] VITALS: Ht 185.4 cm; Wt 125.2 kg
--- OUTSIDE RECORDS SUMMARY | 2017-06-07 05:59 | XMS REPORT | Continuity of Care Document ---
Author Author [employer] Organization [employer] Address Unknown Phone Unavailable Care Team Providers Care Assistant Professor Of Psychology Name Role Phone [employer] Unavailable Unavailable Problems Medications Allergies, Adverse Reactions, Alerts Immunizations Results Vital Signs Encounters Procedures Plan of Care Social History Assessment and Plan Family History Value Date Source Advance Directives Order Name Results Value Date Source
[2017-06-07] MEDS ORDERED: LACTATED RINGERS 1,000 ML IV PRN (06:17)
--- NOTE | 2017-06-07 06:35 | Diagnostic Imaging Report ---
EXAM: ABDOMEN/KUB 1VIEW INDICATION: Nephrolithiasis. COMPARISON: Abdominal radiograph 05/09/2017. FINDINGS: Stable calcifications overlying the left kidney. The previously noted calcification along the superior margin of the right 12th rib is no longer seen. There remains some radiopaque densities along the inferior margin of the right 12th rib. No findings specific for ureteral calcifications. Surgical clips overlying the pelvis. Nonspecific bowel gas pattern. IMPRESSION: Persistent calcifications overlying both kidneys. There is a single calcification previously seen overlying right kidney which is no longer seen. Dictated by: Dictated on workstation # [id number]
[2017-06-07 06:40] VITALS: BP 123/74
[2017-06-07] MEDS ORDERED: ONDANSETRON 4 MG/2 ML (SDV) Z0FRAN ONE (06:47)
[2017-06-07] MEDS ORDERED: FUROSEMIDE 40 MG/4 ML INJ (LASIX) ONE (06:47)
[2017-06-07] MEDS ORDERED: proPOfol 200 MG/20 ML (DIPRIVAN) VIAL IV ONE (06:47)
[2017-06-07] MEDS ORDERED: MIDAZOLAM 2 MG/2 ML (VERSED) VIAL ONE (06:47)
[2017-06-07] MEDS ORDERED: fentaNYL INJECTION 100 MCG/2 ML AMP ONE (06:47)
[2017-06-07] MEDS ORDERED: cefTRIAXone 1 GM/NS 50 ML IVPB IV ONE ×2 (07:00)
[2017-06-07] MEDS ORDERED: CATHETER FLUSH 10 ML SYR IV PRN (07:00)
--- NOTE | 2017-06-07 07:08 | Progress Note-Pre Operative ---
Pre-Operative Progress Note H&P Reviewed The H&P was reviewed, patient examined and no changes noted. Date Seen by Provider: Jun 07, 2017 Time Seen by Provider: 07:07 Date H&P Reviewed: Jun 07, 2017 Time H&P Reviewed: 07:07 Pre-Operative Diagnosis: LT RENAL STONE CATRACHITO HERNANDEZ MD Jun 07, 2017 7:08 am
--- NOTE | 2017-06-07 07:32 | Discharge Inst-Urology ---
Discharge Inst-Urology Discharge Medications New, Converted, or Re-newed RX: RX on Chart Patient Instructions/Follow Up Plan Please make appointment to been seen in office in 4 weeks. KUB prior to it KUB on way home Post ESWL instructions Increase oral fluids for 48 hours and then as needed. Diet and Activity as tolerated. If questions or concerns contact your physician Or seek help at emergency department. CATRACHITO HERNANDEZ MD Jun 07, 2017 7:32 am
--- NOTE | 2017-06-07 07:34 | Progress Note-Post Operative ---
Post-Operative Progess Note Surgeon (s)/Middle School Assistant Principal (s) Surgeon CATRACHITO HERNANDEZ MD Middle School Assistant Principal: N/A Pre-Operative Diagnosis RT RENAL STONE Post-Operative Diagnosis SAME Procedure & Operative Findings Date of Procedure 06/07/17 Procedure Performed/Findings RT ESWL Anesthesia Type GENERAL Estimated Blood Loss Estimated blood loss (mL): N/A Specimens/Packing Specimens Removed N/A Packing: N/A CATRACHITO HERNANDEZ MD Jun 07, 2017 07:34
[2017-06-07] MEDS ORDERED: SEVOFLURANE (ULTANE) 15 ML INHAL SOLN ONE (07:39)
[2017-06-07] MEDS ORDERED: LACTATED RINGERS 1,000 ML IV ONE (07:39)
[2017-06-07] MEDS ORDERED: ONDANSETRON 4 MG/2 ML (SDV) Z0FRAN IVP PRN (08:15)
[2017-06-07] MEDS ORDERED: KETOROLAC 30 MG/ML VIAL IVP ONE (08:15)
[2017-06-07 08:35] VITALS: BP 124/80
[2017-06-07 09:05] VITALS: BP 117/77
[2017-06-07] MEDS ORDERED: NITR-68 PO (09:30)
[2017-06-07] MEDS ORDERED: TAMS0.4C98 PO (09:30)
[2017-06-07] MEDS ORDERED: HYDR-3874 PO (09:30)
[2017-06-07 09:35] VITALS: BP 141/82
--- NOTE | 2017-06-07 09:43 | Diagnostic Imaging Report ---
EXAMINATION: KUB. INDICATION: Right sided stones, post lithotripsy. COMPARISON: 06/07/2017. FINDINGS: There are bilateral flank calcifications up to 5 mm on the right side and up to 4 mm on the left side. These appear to represent kidney stones distributed in the upper, mid, and lower aspects of each kidney. There is no definitive ureteric or bladder stone. There is evidence of prior ventral hernia repair with mesh seen. IMPRESSION: Bilateral kidney stones. Dictated by: Dictated on workstation # [id number]
[2017-06-07 09:50] VITALS: BP 141/82
--- NOTE | 2017-06-07 12:20 | OPERATIVE REPORT ---
DATE OF SERVICE: 06/07/2017 PREOPERATIVE DIAGNOSIS: Right renal stone. POSTOPERATIVE DIAGNOSIS: Right renal stone. OPERATION PERFORMED: Right extracorporeal shockwave lithotripsy. SURGEON: Siva Hernandez MD ANESTHESIA: General COMPLICATIONS: None. Under satisfactory general anesthesia, the patient was supine on the ESWL table. The right renal stones of fairly good size were localized. Shocks were delivered at kV of 5. A total of 2000 shocks completely fragmented the stones. The patient received 40 mg of Lasix and 30 mg of Toradol IV at the end of the procedure. He tolerated the procedure and anesthesia well and was sent to the recovery room in stable condition. Job ID: [id number] DocumentID: [id number] Dictated Date: 06/07/2017 07:43:58 Loader Helper Sorting Yard Date: 06/07/2017 12:19:40 Dictated By: SIVA HERNANDEZ MD
== END 2017-06-07 09:50 | disposition home or self-care (01) ==
LOC: SDC 05:56
PROVIDERS: ATTEND Urology
DX: N20.0 Calculus of kidney (principal); E11.9 Type 2 diabetes mellitus without complications; I10 Essential (primary) hypertension; E03.9 Hypothyroidism, unspecified; N40.0 Benign prostatic hyperplasia without lower urinary tract symptoms; K76.0 Fatty (change of) liver, not elsewhere classified; M19.91 Primary osteoarthritis, unspecified site; G47.33 Obstructive sleep apnea (adult) (pediatric); Z79.84 Long term (current) use of oral hypoglycemic drugs; Z79.899 Other long term (current) drug therapy
CPT/HCPCS: 74000; 82962; 87081

== ENCOUNTER → 2017-07-04 | Outpatient (CLI) | payer MEDICARE, OTHER ==
[~2017-07-04] MED LIST changes: +HYDR-3874 PO; +NITR-68 PO
--- NOTE | 2017-07-04 16:45 | Diagnostic Imaging Report ---
Supine view of the abdomen. INDICATION: Right renal stone post lithotripsy. FINDINGS: Interval fragmentation of the right renal stone suggested with the largest remaining fragment measuring 5 mm. No definite ureteric stone is identified. On the left side, there are also multiple stones seen up to 5 mm. There is evidence of prior hernia mesh repair in the midabdomen with radiopaque markers. IMPRESSION: Bilateral kidney stones. Dictated by: Dictated on workstation # [id number]
== END ==
LOC: RAD 14:12
PROVIDERS: ATTEND Urology
DX: N20.0 Calculus of kidney (principal)
CPT/HCPCS: 74000

== ENCOUNTER 2019-01-31 08:19 | Outpatient (RCR) | payer MEDICARE, OTHER ==
[~2019-01-31 08:19] MED LIST changes: -BUME1TAB4 PO; +BUME1TAB8 PO; +HYDR-3870 PO; -HYDR-3874 PO; +METF-399 PO; -METF1000 PO
--- NOTE | 2019-01-31 08:58 | Diagnostic Imaging Report ---
INDICATION: Renal stones. TIME OF EXAM: 08:38 a.m. Correlation is made with prior KUB from 07/04/2017. Numerous calcific densities are identified overlying the renal shadows bilaterally. The largest densities measure up to 7-8 mm on the right and 6 mm on the left. There is a calcific density lying just superior to the left transverse process of L4 measuring 7 mm. This is in the distribution of the left ureter and a ureteral calculus cannot be excluded. No pelvic calcifications are seen. Postsurgical changes to the anterior abdominal wall likely from hernia repair is noted. IMPRESSION: Bilateral nephrolithiasis. There is also a calcific density overlying the mid left ureter, as described. Dictated by: Dictated on workstation # [id number]
[2019-02-13] MEDS ORDERED: LISI-552 PO (09:17)
[2019-02-13] MEDS ORDERED: LEVO100T7 PO (09:22)
[2019-02-13] MEDS ORDERED: MELO15TA39 PO (09:22)
[2019-02-13] MEDS ORDERED: FISH1CAP15 PO (09:22)
[2019-02-13] MEDS ORDERED: CIPR-225 PO (11:50)
[2019-02-13] MEDS ORDERED: HYDR-3870 PO (11:52)
[2019-02-13] MEDS ORDERED: TAMS0.4C98 PO (11:52)
== END 2019-05-01 | disposition home or self-care (01) ==
LOC: RAD 08:19
PROVIDERS: ATTEND Urology
DX: N20.0 Calculus of kidney (principal)
CPT/HCPCS: 36415; 74018; 82140; 82340; 82507; 82570; 83735; 83945; 83986; 84105; 84133; 84300; 84392; 84560

== ENCOUNTER → 2019-02-12 | Outpatient (CLI) | payer MEDICARE, OTHER ==
[~2019-02-12] MED LIST changes: +BUME1TAB4 PO; -BUME1TAB8 PO
--- NOTE | 2019-02-12 11:06 | Diagnostic Imaging Report ---
PROCEDURE: CT urinary tract, rule out kidney stone. TECHNIQUE: Multiple contiguous axial images were obtained through the abdomen and pelvis without the use of intravenous contrast. Auto Exposure Controls were utilized during the CT exam to meet ALARA standards for radiation dose reduction. INDICATION: Calcific density in the left ureter, renal stones COMPARISON: 04/04/2017 and radiographs dated 01/31/2019. FINDINGS: A 0.6 cm nodular density within the left lower lobe is identified, having decreased in size since the prior examination when it measured over 1 cm. 0.6 cm pulmonary nodule within the right lower lobe is also decreased in size since the prior examination with improvement of previously noted tree-in-bud nodularity within the right lung base. Diffusely decreased density of the liver, related to fatty infiltration of the liver. Otherwise, the unenhanced liver is unremarkable. The unenhanced spleen is unremarkable. Mesh related to prior midline supraumbilical anterior abdominal wall hernia repair is noted. The gallbladder is unremarkable. Adrenal glands are unremarkable. The pancreas is unremarkable. Multiple nonobstructing right renal calculi are again identified. A 0.8 cm calculus is present within the proximal left ureter. An additional 0.6 cm calculus within the mid left ureter. There is resulting mild right hydroureteronephrosis. The distal left ureter is unremarkable. Additional left-sided renal calculi are also present. The urinary bladder is unremarkable. Moderate vascular calcifications within the abdominal aorta and its branch vessels without aneurysmal dilatation of the abdominal aorta. The appendix is unremarkable. Mesh repair of a prior anterior umbilical hernia. The prostate gland is mildly enlarged with internal prostatic calcifications. Tiny fat-containing right inguinal hernia. No bowel obstruction or pneumatosis. Prominent lymph node along the bilateral external iliac chains are again identified, unchanged since the prior examination. No definite new adenopathy and no significant free air or free fluid. Scattered osseous degenerative changes without acute osseous abnormality. Chronic Schmorl's node within the inferior endplate of L1. IMPRESSION: Several obstructing calculi within the proximal to mid left ureter resulting in mild left hydroureteronephrosis. These measure up to 0.8 cm. Significant bilateral renal calculi, nonobstructing on the right. Bibasilar pulmonary nodules, having decreased in size since 2017, suggesting a benign process. Fatty infiltration of the liver. Additional postsurgical and chronic findings as above. Dictated by: Dictated on workstation # [id number]
== END ==
LOC: RAD 09:57
PROVIDERS: ATTEND Urology
DX: N13.2 Hydronephrosis with renal and ureteral calculous obstruction (principal); K76.0 Fatty (change of) liver, not elsewhere classified; J98.4 Other disorders of lung; R91.8 Other nonspecific abnormal finding of lung field; I70.0 Atherosclerosis of aorta; N40.0 Benign prostatic hyperplasia without lower urinary tract symptoms; R59.0 Localized enlarged lymph nodes; M89.8X9 Other specified disorders of bone, unspecified site; M51.46 Schmorl's nodes, lumbar region; Z98.890 Other specified postprocedural states
CPT/HCPCS: 74176

== ENCOUNTER → 2019-02-12 | Outpatient (CLI) | payer MEDICARE, OTHER ==
[~2019-02-12] MED LIST changes: +LEVO100T7 PO; +LISI-552 PO; +MELO15TA39 PO
== END | disposition home or self-care (01) ==
LOC: PREOP 13:40
PROVIDERS: ATTEND Urology
DX: Z01.818 Encounter for other preprocedural examination (principal)

== ENCOUNTER 2019-02-13 07:45 | Day surgery (SDC) | payer MEDICARE, OTHER ==
[~2019-02-13] VITALS: Ht 185.4 cm; Wt 132.2 kg
[2019-02-13] VITALS (11 sets, daily range): BP systolic 124–151; BP diastolic 70–97
[~2019-02-13 07:45] MED LIST changes: -LEVO100T7 PO; -LISI-552 PO; -MELO15TA39 PO
[2019-02-13] MEDS ORDERED: LACTATED RINGERS 1,000 ML IV PRN (07:51)
[2019-02-13] MEDS ORDERED: cefTRIAXone FOR IV USE 1,000 MG in WATER (STERILE) FOR INJECTION 10 ML IV ONE (08:00)
--- NOTE | 2019-02-13 08:12 | Progress Note-Pre Operative ---
Pre-Operative Progress Note H&P Reviewed The H&P was reviewed, patient examined and no changes noted. Date Seen by Provider: Feb 13, 2019 Time Seen by Provider: 08:10 Date H&P Reviewed: Feb 13, 2019 Time H&P Reviewed: 08:11 Pre-Operative Diagnosis: LT URETERAL STONES (2) AND BILATERAL STONES CATRACHITO HERNANDEZ MD Feb 13, 2019 08:12
[2019-02-13] MEDS ORDERED: CATHETER FLUSH 10 ML SYR IV PRN (08:15)
--- NOTE | 2019-02-13 08:21 | Progress Note-Post Operative ---
Post-Operative Progess Note Surgeon (s)/Plant Safety Leader (s) Surgeon CATRACHITO HERNANDEZ MD Plant Safety Leader: NONE Pre-Operative Diagnosis LT URETERAL STONES (2) AND BILATERAL STONES Post-Operative Diagnosis SAME Procedure & Operative Findings Date of Procedure 02/13/19 Procedure Performed/Findings LT URETEROSCOPY AND LT LOWER URETERAL STONE ESWL Anesthesia Type GENERAL Estimated Blood Loss Estimated blood loss (mL): NONE Specimens/Packing Specimens Removed NONE Packing: NONE CATRACHITO HERNANDEZ MD Feb 13, 2019 08:21
--- NOTE | 2019-02-13 08:23 | Discharge Inst-Urology ---
Discharge Inst-Urology Discharge Medications New, Converted, or Re-newed RX: RX on Chart Patient Instructions/Follow Up Plan Please make appointment to been seen in office Monday 02/26. KUB prior to it KUB on way home Post ESWL instructions Increase oral fluids for 48 hours and then as needed. Diet and Activity as tolerated. If questions or concerns contact your physician Or seek help at emergency department. CATRACHITO HERNANDEZ MD Feb 13, 2019 08:23
--- NOTE | 2019-02-13 08:32 | Diagnostic Imaging Report ---
Indication: Left renal calculus KUB 8:15 AM There are multiple calculi projecting over both kidneys. There is a 7 mm calculus projecting over the left ureter at the level of the L4 transverse process and a second questionable calculus near the pelvic inlet. This measures 6 mm in diameter. Impression: Left ureterolithiasis. Bilateral nephrolithiasis. Dictated by: Dictated on workstation # [id number]
[2019-02-13] MEDS ORDERED: proPOfol 200 MG/20 ML (DIPRIVAN) VIAL IV ONE (08:37)
[2019-02-13] MEDS ORDERED: fentaNYL INJECTION 100 MCG/2 ML AMP ONE (08:37)
[2019-02-13] MEDS ORDERED: LIDOCAINE PF 2% 5 ML (XYLOCAINE) VIAL ONE (08:37)
[2019-02-13] MEDS ORDERED: MIDAZOLAM 2 MG/2 ML (VERSED) VIAL ONE (08:37)
[2019-02-13] MEDS ORDERED: ONDANSETRON 4 MG/2 ML (SDV) Z0FRAN ONE (08:37)
[2019-02-13] MEDS ORDERED: SEVOFLURANE (ULTANE) 15 ML INHAL SOLN ONE (08:37)
[2019-02-13] MEDS ORDERED: LISI-552 PO (09:17)
[2019-02-13] MEDS ORDERED: MELO15TA39 PO (09:22)
[2019-02-13] MEDS ORDERED: LEVO100T7 PO (09:22)
[2019-02-13] MEDS ORDERED: FISH1CAP15 PO (09:22)
[2019-02-13] MEDS ORDERED: FUROSEMIDE 40 MG/4 ML INJ (LASIX) ONE (09:37)
[2019-02-13] MEDS ORDERED: KETOROLAC 30 MG/ML VIAL ONE (09:37)
[2019-02-13] MEDS ORDERED: morphine INJ 10 MG/ML 1ML (SYR OR VIAL) IVP ONE (10:30)
[2019-02-13] MEDS ORDERED: ONDANSETRON 4 MG/2 ML (SDV) Z0FRAN IVP PRN (10:30)
[2019-02-13] MEDS ORDERED: PROMETHAZINE INJ 25 MG/ML (PHENERGAN) AMP IVP ONE (10:30)
[2019-02-13] MEDS ORDERED: CIPR-225 PO (11:50)
[2019-02-13] MEDS ORDERED: HYDR-3870 PO (11:52)
[2019-02-13] MEDS ORDERED: TAMS0.4C98 PO (11:52)
--- NOTE | 2019-02-13 12:24 | Diagnostic Imaging Report ---
Indication: Status post lithotripsy. Comparison: Earlier same day at 8:15 AM. Findings: The previously noted left ureteral stones are less apparent on this examination. Small bilateral renal calculi are similar to prior examination. Nonobstructive bowel gas pattern. Hernia raphe mesh is noted. Normal regional skeleton. Impression: 1. Left ureteral stones are no longer visualized. 2. Bilateral renal stones are unchanged. Dictated by: Dictated on workstation # [id number]
--- NOTE | 2019-02-13 12:30 | NUR ---
CHEERFUL AND ALERT, HAS DENIED PAIN OR NAUSEA THROUGHOUT RECOVERY. TAKING PO FLUIDS WELL AND VOIDED 775CC CLEAR, YELLOW URINE. URINE STRAINED, NO STONE PARTICLES OBTAINED. SUPPLIES PROVIDED TO PT TO STRAIN URINE AT HOME INSTRUCTED. REQUESTING DISMISSAL.
--- NOTE | 2019-02-13 14:32 | Anesthesia-General Post-Op ---
General Patient Condition Mental Status/LOC: Same as Preop Cardiovascular: Satisfactory Nausea/Vomiting: Absent Respiratory: Satisfactory Pain: Controlled Complications: Absent Post Op Complications Complications None Follow Up Care/Instructions Patient Instructions None needed. Anesthesia/Patient Condition Patient Condition Patient is doing well, no complaints, stable vital signs, no apparent adverse anesthesia problems. No complications reported per nursing. D/C home per [facility] Criteria: Yes ROD BRISENO CRNA Feb 13, 2019 14:32
--- NOTE | 2019-02-15 13:16 | OPERATIVE REPORT ---
DATE OF SERVICE: 02/13/2019 PREOPERATIVE DIAGNOSIS: Stones in the proximal and distal left ureter and bilateral renal stones. POSTOPERATIVE DIAGNOSIS: Stones in the proximal and distal left ureter and bilateral renal stones. OPERATION PERFORMED: Left ureteroscopy and left ESWL. SURGEON: Siva Hernandez MD ANESTHESIA: General. COMPLICATIONS: None. DESCRIPTION OF PROCEDURE: Under satisfactory general anesthesia, the patient in the lithotomy position on the cystoscopy table, genitalia were prepped and draped in usual sterile fashion. The cystoscope was introduced under vision. The anterior urethra was normal. The prostate shows lateral lobe enlargement deviating the middle line with a median bar. I entered the bladder. The only abnormality is that ureteric orifices were explored and spaced upward and laterally, and trabeculated wall. Using the foroblique lens, I attempt dilating the left ureteral orifice, but met resistance, so I removed the cystoscope, introduced the 6.9 Mongolian semi-rigid ureteroscope and was able to go through the orifice intramural portion and then the ureter had what probably was a curve secondary to the fishhook deformity from the enlarged prostate. I was unable to manipulate the semirigid ureteroscope, so I removed the ureteroscope, reinserted the cystoscope to empty the bladder, removed the patient on the ESWL table. We localized the left mid ureteral stone and delivered 3000 shocks at kV of 6 and could not visualize the stones anymore. I did not want to do anything to the upper stones, which I had explained to the patient before knowing for sure that the fragments of the ESWL of today had passed in order to avoid any steinstrasse and we can always blast the proximal stone in 2 weeks when the machine is back, and this was explained preoperatively to the patient and his . He was also offered to go to for a flexible ureteral lithotripsy and he has declined. The patient received 40 mg of Lasix and 30 mg of Toradol IV. He tolerated the procedure and anesthesia well, and was sent to recovery room in stable condition. Job ID: [id number] DocumentID: [id number] Dictated Date: 02/13/2019 11:30:56 Vegetable Worker Date: 02/13/2019 17:46:48 Dictated By: SIVA HERNANDEZ MD
== END 2019-02-13 12:30 | disposition home or self-care (01) ==
LOC: SDC 07:45
PROVIDERS: ATTEND Urology
DX: N20.2 Calculus of kidney with calculus of ureter (principal); I10 Essential (primary) hypertension; E11.9 Type 2 diabetes mellitus without complications; G47.33 Obstructive sleep apnea (adult) (pediatric); M10.9 Gout, unspecified; E66.01 Morbid (severe) obesity due to excess calories; Z68.38 Body mass index [BMI] 38.0-38.9, adult; Z79.84 Long term (current) use of oral hypoglycemic drugs; Z79.899 Other long term (current) drug therapy
CPT/HCPCS: 74018; 82962; 87081

== ENCOUNTER 2019-02-26 05:38 | Outpatient (CLI) | payer MEDICARE, OTHER ==
[~2019-02-26] VITALS: Ht 185.4 cm; Wt 132.2 kg
[~2019-02-26 05:38] MED LIST changes: +LEVO100T7 PO; +LISI-552 PO; +MELO15TA39 PO
== END 2019-02-26 11:07 | disposition home or self-care (01) ==
LOC: PREOP 05:38
PROVIDERS: ATTEND Urology
DX: Z01.818 Encounter for other preprocedural examination (principal)

== ENCOUNTER → 2019-02-27 | Outpatient (CLI) | payer MEDICARE, OTHER ==
--- NOTE | 2019-02-27 11:03 | Diagnostic Imaging Report ---
INDICATION: Status post lithotripsy. COMPARISON: 02/13/2019. FINDINGS: Multiple mineralized renal stones involving both kidneys are unchanged. The dominant measures 7 mm in size in the lower pole of the right kidney. No calcified stones along the ureters by radiography. Stable herniorrhaphy. Nonobstructive bowel gas pattern. IMPRESSION: Multiple bilateral renal stones are unchanged since 02/13/2019. Dictated by: Dictated on workstation # [id number]
== END ==
LOC: RAD 08:40
PROVIDERS: ATTEND Urology
DX: N20.2 Calculus of kidney with calculus of ureter (principal); Z98.890 Other specified postprocedural states
CPT/HCPCS: 74018

== ENCOUNTER 2019-02-28 07:00 | Day surgery (SDC) | payer MEDICARE, OTHER ==
[~2019-02-28] VITALS: Ht 185.4 cm; Wt 132.2 kg
[2019-02-28] VITALS (12 sets, daily range): BP systolic 100–136; BP diastolic 68–88
--- NOTE | 2019-02-28 07:11 | Progress Note-Pre Operative ---
Pre-Operative Progress Note H&P Reviewed The H&P was reviewed, patient examined and no changes noted. Date Seen by Provider: Feb 28, 2019 Time Seen by Provider: 07:11 Date H&P Reviewed: Feb 28, 2019 Time H&P Reviewed: 07:11 Pre-Operative Diagnosis: LT URETERAL STONES CATRACHITO HERNANDEZ MD Feb 28, 2019 07:11
[2019-02-28] MEDS ORDERED: ONDANSETRON 4 MG/2 ML (SDV) Z0FRAN ONE (07:23)
[2019-02-28] MEDS ORDERED: LIDOCAINE PF 2% 5 ML (XYLOCAINE) VIAL ONE (07:23)
[2019-02-28] MEDS ORDERED: proPOfol 200 MG/20 ML (DIPRIVAN) VIAL IV ONE (07:23)
[2019-02-28] MEDS ORDERED: DEXAMETHASONE 10 MG/ML (DECADRON) 1 ML VIAL ONE (07:23)
[2019-02-28] MEDS ORDERED: MIDAZOLAM 2 MG/2 ML (VERSED) VIAL ONE (07:24)
[2019-02-28] MEDS ORDERED: fentaNYL INJECTION 250 MCG/5 ML AMP ONE (07:24)
[2019-02-28] MEDS ORDERED: LACTATED RINGERS 1,000 ML IV PRN (07:29)
[2019-02-28] MEDS ORDERED: cefTRIAXone FOR IV USE 1,000 MG in WATER (STERILE) FOR INJECTION 10 ML IV ONE (07:30)
[2019-02-28] MEDS ORDERED: SEVOFLURANE (ULTANE) 15 ML INHAL SOLN ONE ×2 (07:49→09:16)
--- NOTE | 2019-02-28 07:49 | Diagnostic Imaging Report ---
INDICATION: Post lithotripsy. Comparison with 02/27/2019. FINDINGS: There are comminuted calculi noted within both kidneys. There has been some decrease in number of the calculi in the left kidney since previous exam. There are calcifications along the left ureteral path. IMPRESSION: Bilateral nephrolithiasis with some calculi transiting from the left kidney into the left ureter since previous exam. Dictated by: Dictated on workstation # [id number]
[2019-02-28] MEDS ORDERED: WATER (STERILE) FOR INJECTION 10 ML ONE (07:55)
[2019-02-28] MEDS ORDERED: cefTRIAXone 1,000 MG IV (ROCEPHIN) VIAL ONE (07:55)
[2019-02-28] MEDS ORDERED: FUROSEMIDE 40 MG/4 ML INJ (LASIX) ONE (08:22)
[2019-02-28] MEDS ORDERED: IOPAMIDOL 61% 30 ML (ISOVUE 300) VIAL IV ONE (08:37)
--- NOTE | 2019-02-28 08:58 | Progress Note-Post Operative ---
Post-Operative Progess Note Surgeon (s)/Dry Cleaning Counter Clerk (s) Surgeon CATRACHITO HERNANDEZ MD Dry Cleaning Counter Clerk: NONE Pre-Operative Diagnosis LT PROXIMAL URETERAL STONE Post-Operative Diagnosis SAME Procedure & Operative Findings Date of Procedure 02/28/19 Procedure Performed/Findings CYSTOSCOPY, LEFT RETROGRADE UROGRAM, STENT, AND LT ESWL Anesthesia Type GENERAL Estimated Blood Loss Estimated blood loss (mL): NONE Specimens/Packing Specimens Removed NONE Packing: NONE CATRACHITO HERNANDEZ MD Feb 28, 2019 08:58
[2019-02-28] MEDS ORDERED: KETOROLAC 30 MG/ML VIAL ONE (09:02)
--- NOTE | 2019-02-28 09:02 | Discharge Inst-Urology ---
Discharge Inst-Urology Patient Instructions/Follow Up Plan Please make appointment to been seen in office in [address] home Post ESWL instructions Increase oral fluids for 48 hours and then as needed. Diet and Activity as tolerated. If questions or concerns contact your physician Or seek help at emergency department. CATRACHITO HERNANDEZ MD Feb 28, 2019 09:02
--- NOTE | 2019-02-28 11:20 | NUR ---
PT RECEIVED DISCHARGE INSTRUCTIONS, SIGNED, PLACED IN CHART. [facility] FOLLOW UP APPT. MADE FOR 03/28/19 AT 1425. PT AND HAD NO FURTHER QUESTIONS. PT DISCHARGED VIA
--- NOTE | 2019-02-28 12:50 | Anesthesia-General Post-Op ---
General Patient Condition Mental Status/LOC: Same as Preop Cardiovascular: Satisfactory Nausea/Vomiting: Absent Respiratory: Satisfactory Pain: Controlled Complications: Absent Post Op Complications Complications None Follow Up Care/Instructions Patient Instructions None needed. Anesthesia/Patient Condition Patient Condition Patient is doing well, no complaints, stable vital signs, no apparent adverse anesthesia problems. No complications reported per nursing. MINERVA LOPEZ CRNA Feb 28, 2019 12:50
--- NOTE | 2019-02-28 13:43 | OPERATIVE REPORT ---
DATE OF SERVICE: 02/28/2019 PREOPERATIVE DIAGNOSIS: Left proximal ureteral and bilateral renal stones. POSTOPERATIVE DIAGNOSIS: Left proximal ureteral and bilateral renal stones. PROCEDURES PERFORMED: Cystoscopy with left retrograde urogram and stent and left ESWL. SURGEON: Siva Hernandez MD. ANESTHESIA: General. COMPLICATIONS: None. DESCRIPTION OF PROCEDURE: Under satisfactory general anesthesia with the patient in the lithotomy position on the ESWL table, genitalia were prepped and draped in the usual sterile fashion. Cystoscope was introduced under direct vision. The anterior urethra was normal. The prostate shows some median bar and some enlargement causing the ureteric orifices to be displaced upward and laterally. Using the foroblique lens, I was able to pass a spiral tip ureteral catheter into the left ureteral orifice and guided fluoroscopically up to the mid ureter, injected contrast. There was no filling defect in the lower portion of the proximal ureter or the upper portion of the mid ureter. There was questionable filling defect in the proximal ureter at the level of the L3. I left ureteral catheter there and then removed the cystoscope after emptying the bladder and then taped the catheter to the patient's thigh. I put the patient in supine position and under fluoroscopy with guidance of injection of contrast, we localized the stone. We delivered shocks at a kV of 5, a total of 2500 shocks, we could not see any more filling defect. There was complete and rapid emptying of the contrast from the ureter. We gave the patient 40 mg of Lasix and 30 mg of Toradol IV at the end of the procedure. He tolerated the procedure and anesthesia well and was sent to the recovery room in stable condition. Job ID: [id number] DocumentID: [id number] Dictated Date: 02/28/2019 09:08:47 Manager Of Loss Prevention Operations Date: 02/28/2019 13:42:06 Dictated By: SIVA HERNANDEZ MD
== END 2019-02-28 11:23 | disposition home or self-care (01) ==
LOC: SDC 07:00
PROVIDERS: ATTEND Urology
DX: N20.1 Calculus of ureter (principal); N20.0 Calculus of kidney; Z11.2 Encounter for screening for other bacterial diseases; E11.9 Type 2 diabetes mellitus without complications; I10 Essential (primary) hypertension; M19.91 Primary osteoarthritis, unspecified site; K76.0 Fatty (change of) liver, not elsewhere classified; G47.33 Obstructive sleep apnea (adult) (pediatric); Z79.899 Other long term (current) drug therapy; Z79.84 Long term (current) use of oral hypoglycemic drugs
CPT/HCPCS: 74018; 82962; 87081